=== PATIENT | male | born 1980 | race Caucasian/White ===

== ENCOUNTER 2021-06-07 08:39 | Emergency (ER) | payer OTHER ==
[~2021-06-07 08:39] MED LIST: AMLODIPINE BESYL5 MG PO; BENTYL10 MG PO; CARAFATE1 GM PO; NORCO 5-325 TA1 EACH PO; PROMETHEGA12.5 MG/SU PR; ZOFRAN4 MG PO; ZOFRAN8 MG PO
[2021-06-07 09:24] LABS: BASOPHIL 0.7 % (0-2); EOSINOPHIL 1.2 % (0-5); HCT 48.5 % (42.0-52.0); HGB 16.4 g/dl (13.2-18.0); LYMPHOCYTE 23.6 % (15-48); MCH 31.1 pg (25.0-31.0); MCHC 33.8 g/dL (32.0-36.0); MONOCYTE 6.8 % (0-12); MPV 11.1 fL (6.0-9.5); NEUTROPHIL 67.3 % (41-80); NRBC 0; PLT 249 K/uL (150-400); RBC 5.27 M/uL (4.70-6.00); RDW 13.2 % (11.5-14.0)
[2021-06-07 09:25] LABS: BILIRUBIN NEGATIVE (NEGATIVE); BLOOD NEGATIVE Ery/uL (NEGATIVE); CLARITY HAZY (CLEAR); COLOR YELLOW (YELLOW); GLUCOSE (U) NORMAL (NORMAL); LEUKOCYTES NEGATIVE Leu/uL (NEGATIVE); NITRITE NEGATIVE (NEGATIVE); PROTEIN NEGATIVE (NEGATIVE); SPECIFIC GRAVITY >=1.030 (1.001-1.030); UROBILINOGEN 0.2 mg/dL (0.2-1.0); pH 5.5 (5.0-9.0)
[2021-06-07 09:27] LABS: ALBUMIN 4.6 g/dL (3.4-5.0); BILIRUBIN - TOTAL 0.5 mg/dL (0.2-1.0); BUN/CREAT RATIO (CALC) 14.6 RATIO; CREATININE 0.96 mg/dL (0.67-1.17); GLOBULIN (CALCULATION) 4.1 g/dL; POTASSIUM 4.1 mmol/L (3.5-5.1); TOTAL PROTEIN 8.7 g/dL (6.4-8.2)
== END 2021-06-07 11:33 | disposition home or self-care (01) ==
LOC: FER 08:39
PROVIDERS: Emergency Medicine
DX: K29.70 Gastritis, unspecified, without bleeding (principal); E11.9 Type 2 diabetes mellitus without complications; Z90.49 Acquired absence of other specified parts of digestive tract; Z20.822 Contact with and (suspected) exposure to COVID-19
CPT/HCPCS: 36415; 74022; 80053; 81003; 83690; 85025; J2405; J7030; Q9967; U0002

== ENCOUNTER 2021-07-24 12:29 | Day surgery (SDCO) | payer OTHER ==
[~2021-07-24] VITALS: Ht 185.4 cm; Wt 126.2 kg
[2021-07-24 13:13] LABS: BASOPHIL 0.3 % (0-2); EOSINOPHIL 0.1 % (0-5); HCT 48.2 % (42.0-52.0); LYMPHOCYTE 15.8 % (15-48); MCH 31.3 pg (25.0-31.0); MCHC 35.3 g/dL (32.0-36.0); MCV 88.8 fL (78.0-100.0); MONOCYTE 5.7 % (0-12); MPV 11.3 fL (6.0-9.5); NEUTROPHIL 77.8 % (41-80); NRBC 0; PLT 277 K/uL (150-400); RBC 5.43 M/uL (4.70-6.00)
[2021-07-24 13:42] LABS: ALBUMIN 4.7 g/dL (3.4-5.0); BILIRUBIN - TOTAL 0.9 mg/dL (0.2-1.0); BUN/CREAT RATIO (CALC) 16.4 RATIO; CREATININE 1.16 mg/dL (0.67-1.17); GLOBULIN (CALCULATION) 4.1 g/dL; POTASSIUM 3.9 mmol/L (3.5-5.1); TOTAL PROTEIN 8.8 g/dL (6.4-8.2)
[2021-07-24 13:47] LABS: BILIRUBIN NEGATIVE (NEGATIVE); BLOOD NEGATIVE Ery/uL (NEGATIVE); CLARITY CLOUDY (CLEAR); COLOR YELLOW (YELLOW); GLUCOSE (U) NORMAL (NORMAL); LEUKOCYTES NEGATIVE Leu/uL (NEGATIVE); NITRITE NEGATIVE (NEGATIVE); PROTEIN 1+ mg/dL (NEGATIVE); SPECIFIC GRAVITY >=1.030 (1.001-1.030); UROBILINOGEN 0.2 mg/dL (0.2-1.0); pH 5.5 (5.0-9.0)
[2021-07-24 14:07] LABS: AMORPHOUS URATES CRYSTALS MODERATE; MUCOUS TRACE
[2021-07-24] MEDS ORDERED: DEXILANT30 MG PO (17:48)
[2021-07-24] MEDS ORDERED: PRAVASTATIN SOD10 MG PO (17:49)
[2021-07-24] MEDS ORDERED: ALIGN4 MG PO (17:50)
[2021-07-25 13:50] LABS: BASOPHIL 0.5 % (0-2); EOSINOPHIL 1.5 % (0-5); HCT 41.3 % (42.0-52.0); HGB 13.6 g/dl (13.2-18.0); LYMPHOCYTE 36.9 % (15-48); MCH 30.8 pg (25.0-31.0); MCHC 32.9 g/dL (32.0-36.0); MONOCYTE 7.1 % (0-12); MPV 11.1 fL (6.0-9.5); NEUTROPHIL 53.7 % (41-80); NRBC 0; PLT 179 K/uL (150-400); RBC 4.41 M/uL (4.70-6.00); RDW 13.1 % (11.5-14.0); WBC 9.7 K/uL (4.0-10.5)
[2021-07-25 13:53] LABS: MCV 93.7 fL (78.0-100.0)
[2021-07-25 14:15] LABS: ALBUMIN 3.8 g/dL (3.4-5.0); BILIRUBIN - TOTAL 0.7 mg/dL (0.2-1.0); BUN/CREAT RATIO (CALC) 14.9 RATIO; CREATININE 1.14 mg/dL (0.67-1.17); GLOBULIN (CALCULATION) 3.2 g/dL; POTASSIUM 3.9 mmol/L (3.5-5.1)
[2021-07-26 06:26] LABS: BASOPHIL 0.5 % (0-2); EOSINOPHIL 2.3 % (0-5); HCT 39.8 % (42.0-52.0); HGB 13.6 g/dl (13.2-18.0); MCH 31.6 pg (25.0-31.0); MCHC 34.2 g/dL (32.0-36.0); MCV 92.3 fL (78.0-100.0); MPV 11.1 fL (6.0-9.5); NEUTROPHIL 56.9 % (41-80); NRBC 0; PLT 162 K/uL (150-400); RBC 4.31 M/uL (4.70-6.00); RDW 12.6 % (11.5-14.0)
[2021-07-26 06:47] LABS: ALBUMIN 3.7 g/dL (3.4-5.0); BILIRUBIN - TOTAL 0.8 mg/dL (0.2-1.0); BUN/CREAT RATIO (CALC) 13.5 RATIO; CREATININE 1.11 mg/dL (0.67-1.17); GLOBULIN (CALCULATION) 3.2 g/dL; POTASSIUM 4.2 mmol/L (3.5-5.1); TOTAL PROTEIN 6.9 g/dL (6.4-8.2)
[2021-07-27 06:05] LABS: BASOPHIL 0.4 % (0-2); EOSINOPHIL 1.9 % (0-5); HCT 41.9 % (42.0-52.0); HGB 14.6 g/dl (13.2-18.0); LYMPHOCYTE 28.7 % (15-48); MCH 31.4 pg (25.0-31.0); MCHC 34.8 g/dL (32.0-36.0); MCV 90.1 fL (78.0-100.0); MONOCYTE 7.7 % (0-12); NEUTROPHIL 61.2 % (41-80); NRBC 0; PLT 184 K/uL (150-400); RBC 4.65 M/uL (4.70-6.00); RDW 12.4 % (11.5-14.0); WBC 8.1 K/uL (4.0-10.5)
[2021-07-27 06:43] LABS: BILIRUBIN - TOTAL 0.8 mg/dL (0.2-1.0); BUN/CREAT RATIO (CALC) 12.1 RATIO; CREATININE 1.07 mg/dL (0.67-1.17); GLOBULIN (CALCULATION) 3.3 g/dL; MAGNESIUM 2.2 mg/dL (1.8-2.4); TOTAL PROTEIN 7.3 g/dL (6.4-8.2)
[2021-07-27] MEDS ORDERED: AUGMENTIN 875-1 EACH PO (13:29)
[2021-07-27] MEDS ORDERED: PERCOCET 5-3251 EACH PO (13:29)
[2021-07-27] MEDS ORDERED: ONDANSETRON ODT4 MG PO (13:29)
--- NOTE | 2021-07-27 15:01 | NUR ---
DC HOME VIA PRIVATE AUTO, ACCOMPANIED BY SPOUSE. VERBAL AND WRITTEN DC INSTRUCTIONS PROVIDED. PT AND SPOUSE VERBALIZED UNDERSTANDING. PT DESIRES TO SCHEDULE OWN FOLLOW UP APPTS. IV DC'ED, TIP INTACT.
== END 2021-07-27 14:06 | disposition home or self-care (01) ==
LOC: FER 12:29 → FMS 15:55
PROVIDERS: Internal Medicine; Nurse Practitioner Family; ADMIT Family Medicine
DX: K52.9 Noninfective gastroenteritis and colitis, unspecified (principal); D72.829 Elevated white blood cell count, unspecified; I12.9 Hypertensive chronic kidney disease with stage 1 through stage 4 chronic kidney disease, or unspecified chronic kidney disease; E11.22 Type 2 diabetes mellitus with diabetic chronic kidney disease; N18.9 Chronic kidney disease, unspecified; E86.0 Dehydration; N17.9 Acute kidney failure, unspecified; R74.01 Elevation of levels of liver transaminase levels; K59.00 Constipation, unspecified; K76.0 Fatty (change of) liver, not elsewhere classified; E66.9 Obesity, unspecified; Z68.36 Body mass index [BMI] 36.0-36.9, adult; Z79.899 Other long term (current) drug therapy; Z20.822 Contact with and (suspected) exposure to COVID-19
CPT/HCPCS: 36415; 76770; 78264; 80053; 81001; 82550; 82570; 82962; 83036; 83605; 83690; 83735; 84443; 85025; 87040; A9541; C9113; G0378; J0780; J1170; J1650; J2270; J2405; J2543; J7030; Q9967; U0002

== ENCOUNTER 2021-10-24 12:40 | Emergency (ER) | payer OTHER ==
[~2021-10-24 12:40] MED LIST changes: +ALIGN4 MG PO; +AUGMENTIN 875-1 EACH PO; +DEXILANT30 MG PO; +ONDANSETRON ODT4 MG PO; +PERCOCET 5-3251 EACH PO; +PRAVASTATIN SOD10 MG PO
[2021-10-24 13:46] LABS: BASOPHIL 0.7 % (0-2); EOSINOPHIL 1.9 % (0-5); HCT 46.8 % (42.0-52.0); HGB 15.9 g/dl (13.2-18.0); LYMPHOCYTE 25.3 % (15-48); MCH 30.9 pg (25.0-31.0); MCV 90.9 fL (78.0-100.0); MONOCYTE 6.7 % (0-12); MPV 10.8 fL (6.0-9.5); NRBC 0; PLT 236 K/uL (150-400); RBC 5.15 M/uL (4.70-6.00); RDW 12.8 % (11.5-14.0)
[2021-10-24 14:20] LABS: ALBUMIN 4.6 g/dL (3.4-5.0); BILIRUBIN - TOTAL 0.6 mg/dL (0.2-1.0); BUN/CREAT RATIO (CALC) 13.4 RATIO; CREATININE 0.97 mg/dL (0.67-1.17); GLOBULIN (CALCULATION) 3.5 g/dL; POTASSIUM 3.9 mmol/L (3.5-5.1); TOTAL PROTEIN 8.1 g/dL (6.4-8.2)
[2021-10-24] MEDS ORDERED: NORCO 5-325 TA1 EACH PO (15:29)
== END 2021-10-24 15:32 | disposition home or self-care (01) ==
LOC: FER 12:40
PROVIDERS: Physician Assistant
DX: R10.31 Right lower quadrant pain (principal); R11.2 Nausea with vomiting, unspecified; R19.7 Diarrhea, unspecified; E11.9 Type 2 diabetes mellitus without complications; I10 Essential (primary) hypertension; Z79.899 Other long term (current) drug therapy; Z87.891 Personal history of nicotine dependence
CPT/HCPCS: 36415; 80053; 83690; 85025; J1170; J2765; J7030; Q0162; Q9967

== ENCOUNTER 2021-10-31 18:12 | Inpatient (IN) | payer OTHER ==
[~2021-10-31] VITALS: Ht 185.4 cm; Wt 133.6 kg
[2021-10-31 19:15] LABS: BASOPHIL 0.5 % (0-2); EOSINOPHIL 0.2 % (0-5); HCT 50.3 % (42.0-52.0); HGB 17.6 g/dl (13.2-18.0); LYMPHOCYTE 12.3 % (15-48); MCH 31.3 pg (25.0-31.0); MCV 89.3 fL (78.0-100.0); MONOCYTE 6.2 % (0-12); NEUTROPHIL 80.1 % (41-80); NRBC 0; PLT 340 K/uL (150-400); RBC 5.63 M/uL (4.70-6.00); RDW 13.1 % (11.5-14.0); WBC 24.6 K/uL (4.0-10.5)
[2021-10-31 19:30] LABS: ALBUMIN 5.1 g/dL (3.4-5.0); BUN/CREAT RATIO (CALC) 9.6 RATIO; CREATININE 1.46 mg/dL (0.67-1.17); POTASSIUM 4.2 mmol/L (3.5-5.1); TOTAL PROTEIN 9.1 g/dL (6.4-8.2)
[2021-10-31 19:34] LABS: LACTIC ACID 4.2 mmol/L (0.4-1.9)
[2021-10-31 22:26] LABS: CORONAVIRUS 2019 SARS-COV-2 NEGATIVE (NEGATIVE); INFLUENZA A NAA NEGATIVE (NEGATIVE)
[2021-10-31 23:39] LABS: BILIRUBIN NEGATIVE (NEGATIVE); BLOOD NEGATIVE Ery/uL (NEGATIVE); CLARITY CLEAR (CLEAR); COLOR YELLOW (YELLOW); GLUCOSE (U) NORMAL (NORMAL); LEUKOCYTES NEGATIVE Leu/uL (NEGATIVE); NITRITE NEGATIVE (NEGATIVE); PROTEIN TRACE (LOW) mg/dL (NEGATIVE); SPECIFIC GRAVITY 1.025 (1.001-1.030); UROBILINOGEN 0.2 mg/dL (0.2-1.0)
[2021-11-01] MEDS ORDERED: METOCLOPRAMIDE H5 M1 PO (17:29)
[2021-11-01] MEDS ORDERED: AMLODIPINE BESY10 MG PO (17:31)
[2021-11-01] MEDS ORDERED: DEXILANT60 MG PO (17:32)
[2021-11-01] MEDS ORDERED: PRAVASTATIN SOD10 M1 PO (17:33)
[2021-11-02 07:49] LABS: BASOPHIL 0.4 % (0-2); EOSINOPHIL 1.3 % (0-5); HCT 41.1 % (42.0-52.0); HGB 13.7 g/dl (13.2-18.0); LYMPHOCYTE 22.5 % (15-48); MCH 31.2 pg (25.0-31.0); MCHC 33.3 g/dL (32.0-36.0); MONOCYTE 6.6 % (0-12); MPV 11.1 fL (6.0-9.5); NEUTROPHIL 68.9 % (41-80); NRBC 0; PLT 201 K/uL (150-400); RBC 4.39 M/uL (4.70-6.00); WBC 13.3 K/uL (4.0-10.5)
[2021-11-02 07:59] LABS: ALBUMIN 3.7 g/dL (3.4-5.0); BILIRUBIN - TOTAL 0.7 mg/dL (0.2-1.0); BUN/CREAT RATIO (CALC) 11.2 RATIO; CREATININE 1.16 mg/dL (0.67-1.17); MAGNESIUM 1.9 mg/dL (1.8-2.4)
[2021-11-02 08:02] LABS: MCV 93.6 fL (78.0-100.0); TOTAL PROTEIN 6.7 g/dL (6.4-8.2)
--- NOTE | 2021-11-02 14:43 | NUR ---
CALLED AND TALKED WITH MEDICAL RECORDS AT [facility], [place]
[2021-11-04 04:19] LABS: BASOPHIL 0.5 % (0-2); EOSINOPHIL 2.5 % (0-5); HCT 40.4 % (42.0-52.0); HGB 14.2 g/dl (13.2-18.0); LYMPHOCYTE 27.3 % (15-48); MCH 31.3 pg (25.0-31.0); MCHC 35.1 g/dL (32.0-36.0); MONOCYTE 7.4 % (0-12); MPV 10.7 fL (6.0-9.5); NEUTROPHIL 61.9 % (41-80); NRBC 0; PLT 206 K/uL (150-400); RBC 4.53 M/uL (4.70-6.00); RDW 12.4 % (11.5-14.0); WBC 9.9 K/uL (4.0-10.5)
[2021-11-04 04:20] LABS: MCV 89.2 fL (78.0-100.0)
[2021-11-04 04:36] LABS: ALBUMIN 3.8 g/dL (3.4-5.0); BILIRUBIN - TOTAL 0.8 mg/dL (0.2-1.0); BUN/CREAT RATIO (CALC) 11.3 RATIO; C-REACTIVE PROTEIN 0.2 mg/dL (<=0.90); CREATININE 1.06 mg/dL (0.67-1.17); GLOBULIN (CALCULATION) 3.3 g/dL; TOTAL PROTEIN 7.1 g/dL (6.4-8.2)
[2021-11-04] MEDS ORDERED: METRONIDAZOLE500 MG PO (10:49)
[2021-11-04] MEDS ORDERED: CHOLESTYRAMINE L4 GM PO (10:49)
[2021-11-04] MEDS ORDERED: CIPRO500 MG PO (10:49)
[2021-11-04] MEDS ORDERED: ELAVIL50 MG PO (10:50)
--- NOTE | 2021-11-04 12:00 | NUR ---
1200 A REFERRAL WAS MADE TO [facility] TO SET UP AN APPT TO THE [facility] AT [facility], THE NUMBER IS [phone].
== END 2021-11-04 12:00 | disposition home or self-care (01) | DRG 73 ==
LOC: FER 18:12 → FMS 11-01 16:53
PROVIDERS: Allergy & Immunology Allergy; Internal Medicine; Physician Assistant; ADMIT Internal Medicine
DX: E11.43 Type 2 diabetes mellitus with diabetic autonomic (poly)neuropathy (principal); A41.9 Sepsis, unspecified organism; N17.9 Acute kidney failure, unspecified; K31.84 Gastroparesis; Z20.822 Contact with and (suspected) exposure to COVID-19; K52.9 Noninfective gastroenteritis and colitis, unspecified; I10 Essential (primary) hypertension; Z90.49 Acquired absence of other specified parts of digestive tract; Z79.899 Other long term (current) drug therapy
CPT/HCPCS: 36415; 71045; 78264; 80053; 81003; 82941; 83036; 83516; 83605; 83690; 83735; 84484; 85025; 86140; 86316; 87040; 93005; A9541; C9113; J1170; J1644; J1650; J1790; J2405; J2543; J2550; J7030; J7120; Q0162; Q0169; Q9967; U0002

== ENCOUNTER 2022-01-25 14:27 | Day surgery (SDCO) | payer OTHER ==
[~2022-01-25] VITALS: Ht 185.4 cm; Wt 132.2 kg
[~2022-01-25 14:27] MED LIST changes: +AMLODIPINE BESY10 MG PO; +CHOLESTYRAMINE L4 GM PO; +CIPRO500 MG PO; +DELZICOL400 M1 PO; +DEXILANT60 MG PO; +ELAVIL50 MG PO; +METOCLOPRAMIDE H5 M1 PO; +METRONIDAZOLE500 MG PO; +PRAVASTATIN SOD10 M1 PO
[2022-01-25 17:57] LABS: BASOPHIL 0.5 % (0-2); EOSINOPHIL 0.5 % (0-5); HCT 51.4 % (42.0-52.0); HGB 17.3 g/dl (13.2-18.0); LYMPHOCYTE 9.3 % (15-48); MCH 30.7 pg (25.0-31.0); MCHC 33.7 g/dL (32.0-36.0); MCV 91.1 fL (78.0-100.0); MONOCYTE 4.3 % (0-12); MPV 11.7 fL (6.0-9.5); NRBC 0; PLT 254 K/uL (150-400); RBC 5.64 M/uL (4.70-6.00); RDW 13.2 % (11.5-14.0); WBC 21.1 K/uL (4.0-10.5)
[2022-01-25 18:05] LABS: ALKALINE PHOSHATASE 106 U/L (46-116); ALT 98 U/L (16-63); AST 46 U/L (15-37); BILIRUBIN - TOTAL 0.9 mg/dL (0.2-1.0); BUN 16 mg/dL (7-18); CHLORIDE 100 mmol/L (98-107); CO2 (BICARBONATE) 28 mmol/L (21-32); CREATININE 1.14 mg/dL (0.67-1.17); GLOBULIN (CALCULATION) 4.2 g/dL; GLUCOSE 191 mg/dL (74-106); LIPASE 95 U/L (73-393); MAGNESIUM 1.8 mg/dL (1.8-2.4); POTASSIUM 4.1 mmol/L (3.5-5.1); TOTAL PROTEIN 9.2 g/dL (6.4-8.2)
[2022-01-25 18:12] LABS: LACTIC ACID 3.2 mmol/L (0.4-1.9)
[2022-01-25 18:39] LABS: AMPHETAMINES NEGATIVE (NEGATIVE); BARBITURATES NEGATIVE (NEGATIVE); ECSTASY (MDMA) NEGATIVE (NEGATIVE); MARIJUANA (THC) POSITIVE (NEGATIVE); METHADONE NEGATIVE (NEGATIVE); OPIATES NEGATIVE (NEGATIVE); OXYCODONE NEGATIVE (NEGATIVE)
[2022-01-25 18:44] LABS: BILIRUBIN 1+ mg/dL (NEGATIVE); BLOOD NEGATIVE Ery/uL (NEGATIVE); CLARITY CLEAR (CLEAR); COLOR YELLOW (YELLOW); GLUCOSE (U) NORMAL (NORMAL); LEUKOCYTES NEGATIVE Leu/uL (NEGATIVE); NITRITE NEGATIVE (NEGATIVE); PROTEIN TRACE (LOW) mg/dL (NEGATIVE); SPECIFIC GRAVITY >=1.030 (1.001-1.030); UROBILINOGEN 0.2 mg/dL (0.2-1.0)
[2022-01-26] MEDS ORDERED: PRAVASTATIN SOD10 MG PO (01:42)
[2022-01-26] MEDS ORDERED: ONDANSETRON ODT4 MG PO (01:43)
[2022-01-26] MEDS ORDERED: REGLAN5 MG PO (01:44)
[2022-01-26] MEDS ORDERED: DELZICOL400 M1 PO (01:45)
[2022-01-26] MEDS ORDERED: DEXILANT60 MG PO (01:45)
[2022-01-26] MEDS ORDERED: NORCO 5-325 TA1 EACH PO (01:45)
[2022-01-26] MEDS ORDERED: NORVASC5 MG PO (01:46)
[2022-01-26 06:32] LABS: BASOPHIL 0.4 % (0-2); EOSINOPHIL 1.8 % (0-5); HCT 39.8 % (42.0-52.0); HGB 13.4 g/dl (13.2-18.0); LYMPHOCYTE 25.8 % (15-48); MCH 31.2 pg (25.0-31.0); MCHC 33.7 g/dL (32.0-36.0); MCV 92.6 fL (78.0-100.0); MONOCYTE 6.9 % (0-12); MPV 11.2 fL (6.0-9.5); NEUTROPHIL 64.9 % (41-80); NRBC 0; PLT 192 K/uL (150-400); RDW 13.5 % (11.5-14.0); WBC 11.4 K/uL (4.0-10.5)
[2022-01-26 06:43] LABS: BUN/CREAT RATIO (CALC) 13.1 RATIO; CREATININE 0.99 mg/dL (0.67-1.17); POTASSIUM 4.1 mmol/L (3.5-5.1)
== END 2022-01-26 13:35 | disposition home or self-care (01) ==
LOC: FER 14:27 → FMS 22:53
PROVIDERS: Emergency Medicine; Nurse Practitioner Acute Care; ADMIT Internal Medicine
DX: E11.43 Type 2 diabetes mellitus with diabetic autonomic (poly)neuropathy (principal); K31.84 Gastroparesis; K50.90 Crohn's disease, unspecified, without complications; E87.2 Acidosis; R65.11 Systemic inflammatory response syndrome (SIRS) of non-infectious origin with acute organ dysfunction; J98.11 Atelectasis; I12.9 Hypertensive chronic kidney disease with stage 1 through stage 4 chronic kidney disease, or unspecified chronic kidney disease; E11.22 Type 2 diabetes mellitus with diabetic chronic kidney disease; N18.2 Chronic kidney disease, stage 2 (mild); E78.5 Hyperlipidemia, unspecified; G47.33 Obstructive sleep apnea (adult) (pediatric); U07.1 COVID-19; Z87.891 Personal history of nicotine dependence; Z79.899 Other long term (current) drug therapy; Z91.030 Bee allergy status
CPT/HCPCS: 36415; 80048; 80053; 80305; 81003; 83605; 83690; 83735; 84145; 85025; 86140; 94010; G0378; G0480; J1170; J2405; J2543; J2765; J7030; Q9967; U0002